=== PATIENT | female | born 1970 | race Caucasian/White ===

== ENCOUNTER 2018-04-28 21:38 | Emergency (ER) | END 2018-04-28 23:18 | disposition home or self-care (01) ==

== ENCOUNTER 2019-03-27 11:31 | Emergency (ER) | payer BC, OTHER ==
[~2019-03-27] VITALS: Ht 154.9 cm; Wt 63.8 kg
[~2019-03-27 11:31] MED LIST: NAPR-985 PO
[2019-03-27 11:36] VITALS: BP 129/80; PULSE 93; RESP 20; Ht 154.9 cm; Wt 63.8 kg
--- NOTE | 2019-03-27 12:19 | ERD ---
ER Documentation Chief Complaint Chief Complaint right eye swelling x 2 days HPI 48-year-old female, presents to the emergency department, complaining of right upper eyelid edema, erythema and local pruritus for 2 days after eating shrimp and a possible exposure to insect bites. The patient denies blurred vision, no sore throat, no lip or tongue swelling, no cough or shortness of breath. No medications taken at this time for the symptoms. ROS All systems reviewed and are negative except as per history of present illness. Medications Home Meds Active Scripts Naproxen* (Naprosyn*) 500 Mg Tablet, 500 MG PO BID PRN for PAIN AND/OR INFLAMMAT ION, #30 TAB Prov:DAVI COLUNGA PA-C 04/28/18 Allergies Allergies: Coded Allergies: No Known Allergy (Unverified , 04/28/18) PMhx/Soc Hx Miscellaneous Medical Probl: Yes (gastritis) Hx Alcohol Use: No Hx Substance Use: No Hx Tobacco Use: No FmHx Family History: diabetes; No coronary disease Physical Exam Vitals Vital Signs Date Temp Pulse Resp B/P (MAP) Pulse Ox O2 O2 Flow FiO2 Time Delivery Rate 03/27/19 98.1 93 20 129/80 97 11:36 (96) Physical Exam Patient alert, oriented, vital signs stable. HEAD: Normocephalic, atraumatic. EYES: OD: Edema and erythema, well demarcated in the upper eyelid, PERRLA, EOMI, Sclera and conjunctiva appear normal. NOSE: Clear and patent nostrils. EARS: Canals clear, tympanic membranes WNL. MOUTH: normal lips and tongue, no oral lesions. THROAT: Normal oropharynx, no tonsillar exudates. NECK: Supple, No lymphadenopathy. Full ROM without pain or tenderness. HEART: RRR, no rubs, murmurs, clicks or gallops. LUNGS: Clear to auscultation. ABDOMEN: Soft, non-tender without masses or hepatosplenomegaly. EXTREMITIES: No edema bilaterally. BACK: Full ROM, no deformity, normal back exam NEURO: Cranial nerves grossly intact, no motor or sensory deficit SKIN: No rashes, no petechia. Procedures/MDM Differential diagnosis include but not limited to: infection bacterial/viral/fungal, iritis, scleritis, corneal abrasion, allergies, foreign body, glaucoma. Physical examination and clinical presentation consistent most likely with acute allergic conjunctivitis. During the ED course the patient remained stable, no new complaints. Clinical impression discussed with patient who agrees with management. The patient is stable to be treated outpatient and will be discharged home; Some side effects of prescribed medications (headache, rash, nausea, vomiting, diarrhea, interactions with other medications) were reviewed. The patient was instructed to follow up with the primary care provider in the next 48h. If symptoms persist, worsen or new symptoms develop, then patient should return to the ED immediately. Disclaimer: Inadvertent spelling and grammatical errors are likely due to EHR/dictation software use and do not reflect on the overall quality of patient care. Also, please note that the electronic time recorded on this note does not necessarily reflect the actual time of the patient encounter. Departure Diagnosis: Primary Impression: Allergic conjunctivitis Condition: Stable Additional Instructions: Muchas carlos alberto por [facility] para ruiz servicio. Esperamos que en ruiz visita a la manny de emergencia ruiz problema medico haya sido solucionado y que se sienta mucho mejor. Para estar seguros que ruiz mejoria sigue en proceso, le pedimos el favor de hacer sheba pablo de seguimiento medico con ruiz doctor primario en los proximos 2-4 pavon. Lleve con usted estos documentos y las medicinas recetadas. Si nacho sintomas empeoran, NO SE ESPERE, por favor regrese a manny de emergencia INMEDIATAMENTE. En china que usted no tenga un mdico de atencin primaria: Llame al mdico o clnica comunitaria de referencia que aparece abajo michi las horas de consultorio para hacer sheba pablo para que le vean. CLINICAS: [facility] [phone] [id number] [facility] [phone] [id number] [facility] [phone] [address] [facility] [phone] [id number] [facility] 637 [phone] [facility] [phone] JACKIE MOORE MD Mar 27, 2019 12:19
[2019-03-27] MEDS ORDERED: TRIA15CR55 TOP (12:21)
[2019-03-27] MEDS ORDERED: PRED20TA PO (12:21)
== END 2019-03-27 12:53 | disposition home or self-care (01) ==
LOC: FTE 11:31
DX: H10.9 Unspecified conjunctivitis (principal)
CPT/HCPCS: 99283